=== PATIENT | female | born 1945 | race Caucasian/White ===

== ENCOUNTER 2021-07-06 18:54 | Emergency (ER) | payer OTHER ==
[~2021-07-06] VITALS: Ht 160 cm; Wt 71.7 kg
[~2021-07-06 18:54] MED LIST: CYTOMEL50 MCG PO; TOPROL XL25 MG PO
[2021-07-06] MEDS ORDERED: JANUVIA25 MG (20:01)
[2021-07-06] MEDS ORDERED: SYNTHROID100 MCG (20:01)
== END 2021-07-06 22:09 | disposition home or self-care (01) ==
LOC: ER 18:54
DX: U07.1 COVID-19 (principal); R50.83 Postvaccination fever

== ENCOUNTER 2021-08-14 13:19 | Emergency (ER) | payer OTHER ==
[~2021-08-14] VITALS: Ht 160 cm; Wt 71.2 kg
[~2021-08-14 13:19] MED LIST changes: +JANUVIA25 MG; +SYNTHROID100 MCG
== END 2021-08-14 16:47 | disposition home or self-care (01) ==
LOC: ER 13:19
DX: R07.89 Other chest pain (principal); F41.8 Other specified anxiety disorders; Z88.6 Allergy status to analgesic agent

== ENCOUNTER 2022-10-05 12:17 | Emergency (ER) | payer OTHER ==
[~2022-10-05] VITALS: Ht 162.6 cm; Wt 59.0 kg
[2022-10-05] MEDS ORDERED: JARDIANCE10 MG PO (12:38)
== END 2022-10-05 20:42 | disposition home or self-care (01) ==
LOC: ER 12:17
DX: S00.93XA Contusion of unspecified part of head, initial encounter (principal); S40.011A Contusion of right shoulder, initial encounter; S70.01XA Contusion of right hip, initial encounter; W18.30XA Fall on same level, unspecified, initial encounter; Y93.89 Activity, other specified; Y92.531 Health care provider office as the place of occurrence of the external cause; Y99.9 Unspecified external cause status; E11.9 Type 2 diabetes mellitus without complications; Z79.84 Long term (current) use of oral hypoglycemic drugs; I10 Essential (primary) hypertension; E03.9 Hypothyroidism, unspecified; Z88.6 Allergy status to analgesic agent

== ENCOUNTER 2022-11-01 13:17 | Outpatient (CLI) | payer OTHER ==
[~2022-11-01 13:17] MED LIST changes: +JARDIANCE10 MG PO
== END 2022-11-01 13:18 | disposition home or self-care (01) ==
LOC: LAB 13:17
DX: E03.8 Other specified hypothyroidism (principal)

== ENCOUNTER 2022-11-02 10:31 | Outpatient (CLI) | payer OTHER | END 2022-11-02 10:54 | disposition home or self-care (01) | LOC: MAMO-SONO 10:31 | DX: R10.9 Unspecified abdominal pain (principal); N60.11 Diffuse cystic mastopathy of right breast; N60.12 Diffuse cystic mastopathy of left breast; F09 Unspecified mental disorder due to known physiological condition; F03.90 Unspecified dementia, unspecified severity, without behavioral disturbance, psychotic disturbance, mood disturbance, and anxiety | CPT/HCPCS: 70551 ==

== ENCOUNTER 2022-12-12 17:05 | Emergency (ER) | payer OTHER ==
[~2022-12-12] VITALS: Ht 157.5 cm; Wt 59.0 kg
== END 2022-12-13 12:04 | disposition home or self-care (01) ==
LOC: ER 17:05
DX: S29.8XXA Other specified injuries of thorax, initial encounter (principal); S14.5XXA Injury of cervical sympathetic nerves, initial encounter; S09.8XXA Other specified injuries of head, initial encounter; W18.39XA Other fall on same level, initial encounter; Y93.89 Activity, other specified; Y92.091 Bathroom in other non-institutional residence as the place of occurrence of the external cause; Y99.8 Other external cause status; I10 Essential (primary) hypertension; E11.9 Type 2 diabetes mellitus without complications; E03.8 Other specified hypothyroidism; Z20.822 Contact with and (suspected) exposure to COVID-19; Z88.6 Allergy status to analgesic agent
CPT/HCPCS: 36415; 70450; 71250; 71260; 72100; 72125; 72170; 73030; 73060; 73070; 73100; 73130; 73502 ×2; 74177; 93041; 94760; Q9965